=== PATIENT | female | born 1955 | race Caucasian/White ===

== ENCOUNTER 2022-08-24 06:24 | Emergency (ER) | payer OTHER, BC ==
[2022-08-24] MEDS ORDERED: Acetaminophen 500 MG Tab PO ONE (06:47)
[2022-08-24] MEDS ORDERED: Morphine 15 MG Tab PO ONE (06:47)
[2022-08-24] MEDS ORDERED: HYDROmorphone 1 MG/ML Syringe IVPUSH ONE (07:55)
[2022-08-24] MEDS ORDERED: Ondansetron 4 MG/2 ML SDV IVPUSH ONE (07:55)
[2022-08-24] MEDS ORDERED: Ibuprofen 600 MG Tab PO ONE (08:51)
== END 2022-08-24 09:07 | disposition home or self-care (01) ==
LOC: MW.ED 06:24
DX: S43.014A Anterior dislocation of right humerus, initial encounter (principal); S43.034A Inferior dislocation of right humerus, initial encounter; W11.XXXA Fall on and from ladder, initial encounter; Y99.0 Civilian activity done for income or pay
CPT/HCPCS: 23650; 73000; 73030; 73080; 96374; 96375; 99283; A9270; J1170; J2405

== ENCOUNTER 2022-10-21 09:25 | Day surgery (SDC) | payer OTHER, BC ==
[~2022-10-21 09:25] MED LIST: Albuterol 0.083% 2.5 MG/3 ML Neb Soln NEB PRN; HYDROmorphone 1 MG/ML Syringe IVPUSH PRN; Metoclopramide 10 MG/2 ML SDV IVPUSH PRN; Morphine 2 MG/ML SYRINGE IVPUSH PRN; Naloxone 0.4 MG/ML SDV IVPUSH PRN; Ondansetron 4 MG/2 ML SDV IVPUSH PRN; ceFAZolin 2 GM in Sodium Chloride 0.9% 50 ML IV ONE; droPERidol 5 MG/2 ML SDV IVPUSH PRN; fentaNYL 50 MCG/ML SDV IVPUSH PRN
[2022-10-21] MEDS: Scopolamine 1.5 MG Transdermal Patch TOP ONE (09:40)
[2022-10-21] MEDS: Lactated Ringers 1,000 ML IV SCH (09:53)
[2022-10-21] MEDS ORDERED: fentaNYL 100 MCG/2 ML SDV ONE (10:25)
[2022-10-21] MEDS ORDERED: Propofol 200 MG/20 ML SDV ONE ×2 (10:25→11:59)
[2022-10-21] MEDS ORDERED: Dexamethasone 4 MG/ML 5 ML MDV ONE (10:26)
[2022-10-21] MEDS ORDERED: Rocuronium Bromide 50 MG/5 ML Syringe ONE (10:26)
[2022-10-21] MEDS ORDERED: Lidocaine 2% 5 ML SDV ONE (10:26)
[2022-10-21] MEDS ORDERED: Ondansetron 4 MG/2 ML SDV ONE (10:26)
[2022-10-21] MEDS ORDERED: Dexmedetomidine 200 MCG/2 ML SDV ONE (10:55)
[2022-10-21] MEDS ORDERED: Ropivacaine 0.5% 5 MG/ML 30 ML SDV ONE (11:09)
[2022-10-21] MEDS ORDERED: Bupivacaine 25%/EPINEPHrine/PF 30 ML ONE (11:18)
[2022-10-21] MEDS ORDERED: EPINEPHrine 1 MG/1 ML Amp ONE (11:19)
[2022-10-21] MEDS ORDERED: Phenylephrine HCl 0.5 MG/5 ML AMP ONE (11:56)
[2022-10-21] MEDS ORDERED: Magnesium Sulfate (4.06 MEQ/ML) 5 GM/10 ML SDV ONE (12:01)
[2022-10-21] MEDS ORDERED: ceFAZolin 1 GM Vial ONE ×2 (12:05)
[2022-10-21] MEDS ORDERED: Phenylephrine 1% 10 MG/ML SDV ONE (12:08)
[2022-10-21] MEDS ORDERED: Glycopyrrolate 0.2 MG/ML SDV ONE (12:19)
[2022-10-21] MEDS ORDERED: ePHEDrine 50 MG/ML SDV ONE (12:20)
[2022-10-21] MEDS ORDERED: Sugammadex Sodium 200 MG/2 ML VIAL ONE (13:04)
[2022-10-21] MEDS ORDERED: Ketorolac 30 MG/ML SDV ONE (13:04)
== END 2022-10-21 15:25 | disposition home or self-care (01) ==
LOC: MW.SDS 09:25
PROVIDERS: ATTEND Orthopaedic Surgery
DX: M75.101 Unspecified rotator cuff tear or rupture of right shoulder, not specified as traumatic (principal); S46.111A Strain of muscle, fascia and tendon of long head of biceps, right arm, initial encounter; D64.9 Anemia, unspecified; Z79.899 Other long term (current) drug therapy; Z91.018 Allergy to other foods; Z98.890 Other specified postprocedural states
CPT/HCPCS: 29826; 29827; 64415; A9270; J0131; J0171; J0690; J1100; J1885; J2370; J2405; J2704; J2795; J3010; J3475; J3490; J7120; 01630